=== PATIENT | male | born 1960 | race Caucasian/White ===

== ENCOUNTER → 2017-10-02 | Outpatient (CLI) | payer BC ==
[2014-06-30 13:04] VITALS: BP 115/63
[~2017-10-02] MED LIST: CIPRO 500MG TA500 MG PO; HUMALOG PEN100 U/ML SC; HUMALOG100 U/ML SC; LANTUS PEN100 U/ML SC; LANTUS100 U/ML SC; METFORMIN500 MG; MULTI VITAMINS1 TAB PO
== END ==
LOC: RAD 14:22
DX: R60.0 Localized edema (principal)